=== PATIENT | female | born 1975 | race Caucasian/White ===

== ENCOUNTER 2017-03-20 10:52 | Day surgery (SDC) | payer BC ==
[~2017-03-20] VITALS: Ht 152.4 cm; Wt 68.4 kg
[2017-03-20] VITALS (9 sets, daily range): BP systolic 98–142; BP diastolic 55–77; PULSE 69–82; TEMP 98.2–99
[2017-03-20 07:58] LABS: MEAN CELL VOLUME 90 fl (80.0-100.0); MEAN CORPUSCULAR HGB CONC 32 g/dl (33.0-37.0); MEAN PLATELET VOLUME 10.1 fl (7.4-10.4); PLATELET COUNT 291 K/mm3 (130-400); RED BLOOD COUNT 4.06 M/mm3 (4.10-5.30); WHITE BLOOD COUNT 7.6 K/mm3 (4.8-10.8)
[2017-03-20 08:03] LABS: CALCIUM 8.9 mg/dL (8.4-10.2); CREATININE, serum 0.59 mg/dL (0.52-1.25); PROTHROMBIN TIME 11.2 SECONDS (9.7-12.8)
[2017-03-20 08:07] LABS: HEMATOCRIT 36.4 % (37.0-47.0); HEMOGLOBIN 11.5 g/dl (12.5-16.0); MEAN CORPUSCULAR HEMOGLOBIN 28 pg (27.0-31.0)
[~2017-03-20 10:52] MED LIST: ASPIRIN 81M81 MG/TA2 PO; CYMBALTA 30MG30 MG PO; DESYREL 50MG50 MG PO; IBUDONE5 PO; NITROSTAT0.4 MG/TAB SL; WELLBUTRIN SR100 M1 PO; ZOCOR 20MG20 MG PO
== END 2017-03-20 15:33 | disposition home or self-care (01) ==
LOC: EUO 10:52 → MEDICAL 15:33 → EDSTATUS 15:57
PROVIDERS: Internal Medicine Interventional Cardiology
DX: R07.9 Chest pain, unspecified (principal); R94.31 Abnormal electrocardiogram [ECG] [EKG]; E78.5 Hyperlipidemia, unspecified; Z79.82 Long term (current) use of aspirin; F17.210 Nicotine dependence, cigarettes, uncomplicated; M54.2 Cervicalgia; R11.2 Nausea with vomiting, unspecified; R00.2 Palpitations
CPT/HCPCS: J2250; J3010; Q9967

== ENCOUNTER → 2017-05-18 | Outpatient (CLI) | payer BC | LOC: COL.PUL 05-13 08:00 | DX: R06.02 Shortness of breath (principal) ==

== ENCOUNTER → 2018-07-09 | Outpatient (CLI) | payer BC | LOC: COL.RAD 10:12 | DX: K21.9 Gastro-esophageal reflux disease without esophagitis (principal) ==

== ENCOUNTER → 2018-07-15 | Outpatient (CLI) | payer BC | LOC: COL.RAD 06:41 | DX: K21.0 Gastro-esophageal reflux disease with esophagitis (principal) | CPT/HCPCS: A9541 ==

== ENCOUNTER 2018-07-23 05:18 | Day surgery (SDC) | payer BC ==
[~2018-07-23] VITALS: Ht 163.8 cm; Wt 66.1 kg
[2018-07-23] VITALS (11 sets, daily range): BP systolic 96–137; BP diastolic 44–71; PULSE 64–90; TEMP 97.9–99.5
[2018-07-23] MEDS ORDERED: OXYCONTIN 10MG10 MG PO (06:42)
--- NOTE | 2018-07-23 06:43 | NUR ---
TO RM 8 AT 0604- CALL LIGHT IN REACH MOTHER AT BEDSIDE
[2018-07-23] MEDS ORDERED: MOTRIN 600600 MG/TAB PO (09:58)
[2018-07-23] MEDS ORDERED: PERCOCET 325 MG1 TA2 PO (09:58)
[2018-07-23] MEDS ORDERED: ZOFRAN ODT4 MG PO (09:59)
--- NOTE | 2018-07-23 10:20 | NUR ---
returned to room per bed from PACU, awake and alert, IV infusing per dial-a-flow at 125ml/hr, O2 on at 2L/NC, abdominal robitic sites with massey set are CD&I, c/o some pain/discomfort to neck between shoulders and chest, explained this is most likely due to air introduced during surgery, full assessment completed, see interventions for further info, will provide water
--- NOTE | 2018-07-23 10:50 | NUR ---
continues to c/o pain to neck, medicated with scheduled motrin and percocet 5mg 1 tab, family at bedside
--- NOTE | 2018-07-23 11:00 | NUR ---
rests between checks, takes water and tolerates well
--- NOTE | 2018-07-23 11:30 | NUR ---
has tolerated water well, will order clear liquid tray
--- NOTE | 2018-07-23 12:15 | NUR ---
in bed crying c/o pain to chest anmd still neck pain, up and ambulated in the giraldo and then back to bed, medicated with second percocet 5mg tab, will try to have some clear liquids and then take a nap, mother at bedside
--- NOTE | 2018-07-23 13:10 | NUR ---
resting in bed now and is not tearful and states pain is better, denies needs
--- NOTE | 2018-07-23 14:10 | NUR ---
beginning to c/o some abdominal pain now, will rest
--- NOTE | 2018-07-23 16:00 | NUR ---
c/o abdominal pain and neck and pain in chest, medicated with percocet 5mg 2 tabs, asking to take a walk after pain pills take affect, informed that was fine and if needs assistance to notifiy staff, verbalizes understandiny
--- NOTE | 2018-07-23 17:30 | NUR ---
ambulating in giarldo independently with boyfriend at side, states relief from earlier pain meds
--- NOTE | 2018-07-23 19:11 | NUR ---
bedside shift report given to KIARA Schmidt
--- NOTE | 2018-07-23 19:45 | NUR ---
Pt. sitting up in bed watching TV. Pt. is A&OX3, assessment complete. INT to lt. forarm patent. Pt. has 6 abd. 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 Pt. reports pain at a 7 on pain scale, will give pain meds per orders. Pt. denies further needs, call light within reach.
[2018-07-24 01:07] VITALS: BP 113/72; PULSE 73; TEMP 99
[2018-07-24 03:56] VITALS: BP 120/75; PULSE 77; TEMP 99
--- NOTE | 2018-07-24 05:58 | NUR ---
Pt. slept off and on through the night. Pt. remains A&OX3, INT to lt. forearm remains patent. Pt. has had some pain through the night, see emar for meds given. Pt. denies further needs, call light within reach.
[2018-07-24 06:56] VITALS: BP 113/60; PULSE 81; TEMP 98.4
--- NOTE | 2018-07-24 07:29 | NUR ---
Pt is awake and A/Ox4, sitting up in bed. She requested PRN percocet for 7/10 abdominal and neck/shoulder pain. Lap sites x6 are free of complications, open to air. Pt tolerting clear liquids without diffculty. Planning on ambulating around hallways later this morning. Pt denies any other needs. Sign. other at bedside.
--- NOTE | 2018-07-24 09:06 | NUR ---
Pt reports pain to abdomen is now a 4/10 post percocet.
--- NOTE | 2018-07-24 09:42 | NUR ---
ELISHA met with the patient to discuss a discharge plan. The patient lives in [place] with her children and her mother. The patient does not use any DME and reports independence with ADLs. The patient's PCP is Dr. Christos Chatterjee and the patient receives her medications from [facility] in [place] or [facility] in [place]. The patient does not have advanced directives in the EMR and was not interested in obtaining a DPOA-HC form at this time. The patient reports she plans to return home upon discharge and will have assistance from her mother. There are no additional needs at this time.
--- NOTE | 2018-07-24 12:29 | NUR ---
Pt was discharged home from hospital. All discharge instructions and paperwork was reviewed with pt who expressed understanding and had no questions. New prescriptions given and reviewed. Saline lock removed, catheter tip intact. Pt was escorted out of facility by staff.
== END 2018-07-24 12:45 | disposition home or self-care (01) ==
LOC: SDCO 05:18 → SURG 10:20 → SDCO 07-24 12:45
DX: K22.70 Barrett's esophagus without dysplasia (principal); K21.9 Gastro-esophageal reflux disease without esophagitis; E78.00 Pure hypercholesterolemia, unspecified; K44.9 Diaphragmatic hernia without obstruction or gangrene; F41.9 Anxiety disorder, unspecified; G47.00 Insomnia, unspecified; F17.290 Nicotine dependence, other tobacco product, uncomplicated; M51.27 Other intervertebral disc displacement, lumbosacral region; F17.210 Nicotine dependence, cigarettes, uncomplicated; Z79.82 Long term (current) use of aspirin; Z79.899 Other long term (current) drug therapy
CPT/HCPCS: OP; A9284; J1170; J2250; J2405; J2550; J2704; J3010; J7120

== ENCOUNTER 2020-01-15 02:00 | Inpatient (IN) | payer BC ==
[~2020-01-15] VITALS: Ht 162.6 cm; Wt 72.0 kg
[~2020-01-15 02:00] MED LIST changes: +MOTRIN 600600 MG/TAB PO; +OXYCONTIN 10MG10 MG PO; +PERCOCET 325 MG1 TA2 PO; +ZOFRAN ODT4 MG PO
[2020-01-15 02:30] LABS: COLLECTION METHOD CLEAN CATCH
[2020-01-15 02:38] LABS: MUCOUS Present /lpf; PH 5 (5-8); SQUAMOUS EPITHELIAL 0-2 /hpf; URINE APPEARANCE Hazy; URINE BACTERIA Rare /hpf; URINE BILIRUBIN Negative (NEGATIVE); URINE BLOOD Negative (NEGATIVE); URINE COLOR Yellow; URINE GLUCOSE Negative (NEGATIVE); URINE KETONE Trace (NEGATIVE); URINE LEUKOCYTE ESTERASE Negative (NEGATIVE); URINE NITRATE Negative (NEGATIVE); URINE PROTEIN(semi-quant) Negative (NEGATIVE); URINE UROBILINOGEN Negative (NEGATIVE)
[2020-01-15 02:51] LABS: BASO # 0.1 (0.0-0.2); BASO % 0.5 % (0.0-2.0); EOS # 0.1 (0.0-0.7); EOS % 0.5 % (0-4.0); GRAN # 12.9 (1.4-6.5); GRAN % 76.6 % (42.2-75.2); HEMATOCRIT 38.9 % (37.0-47.0); HEMOGLOBIN 12.7 g/dl (12.5-16.0); LYMPH # 2.5 (1.2-3.4); LYMPH % 14.7 % (20.0-51.0); MEAN CELL VOLUME 84 fl (80.0-100.0); MEAN CORPUSCULAR HEMOGLOBIN 28 pg (27.0-31.0); MEAN CORPUSCULAR HGB CONC 33 g/dl (33.0-37.0); MEAN PLATELET VOLUME 9.8 fl (7.4-10.4); MONO # 1.2 (0.1-0.6); PLATELET COUNT 364 K/mm3 (130-400); RED BLOOD COUNT 4.62 M/mm3 (4.10-5.30); REDCELL DISTRIBUTION WIDTH-CV 17.4 % (11.5-14.5)
[2020-01-15 03:03] LABS: ALANINE AMINOTRANSFERASE 11 U/L (4-34); ALBUMIN 4.4 gm/dL (3.5-5.0); ALKALINE PHOSPHATASE 58 U/L (50-136); ANION GAP 7 mmol/L (7-16); AST,SGOT 22 U/L (15-37); BILIRUBIN,TOTAL 0.4 mg/dL (0.0-1.0); BLOOD UREA NITROGEN 8 mg/dL (7-17); CALCIUM 8.8 mg/dL (8.4-10.2); CARBON DIOXIDE 24 mmol/L (22-30); CHLORIDE 104 mmol/L (98-107); CREATININE, serum 0.65 (0.52-1.25); GLUCOSE 114 mg/dL (74-106); LIPASE 154 U/L (23-300); POTASSIUM 3.7 mmol/L (3.4-5.0); SODIUM 136 mmol/L (137-145); TOTAL PROTEIN 7.3 gm/dL (6.4-8.2)
[2020-01-15 03:17] LABS: C-REACTIVE PROTEIN < 0.5 mg/dL (0.0-0.9)
[2020-01-15] MEDS ORDERED: AMBIEN 5MG TABLE5 MG PO (04:04)
[2020-01-15] MEDS ORDERED: LEXAPRO20 MG PO (04:07)
[2020-01-15] MEDS ORDERED: WELLBUTRIN XL150 MG PO (04:07)
[2020-01-15] MEDS ORDERED: PRENATAL MVI (04:07)
[2020-01-15] MEDS ORDERED: ROXICODONE 55 MG/TAB PO (04:08)
[2020-01-15] MEDS ORDERED: MS CONTIN 330 MG/TAB PO (04:08)
--- NOTE | 2020-01-15 04:45 | NUR ---
Received report from ED KIARA hays
[2020-01-15 04:56] VITALS: BP 105/50; PULSE 74; TEMP 99.5
--- NOTE | 2020-01-15 04:56 | NUR ---
Pt arrived to medical unit room 353 via wc.
--- NOTE | 2020-01-15 06:31 | NUR ---
Pt settled in room. C/O lower abdominal pain, rate 7/10, prn morphine adminsitered. Pt understands NPO status. IVF started to RAC, intact. Call light within reach. MEd rec completed.
--- NOTE | 2020-01-15 07:33 | NUR ---
Report given to KIARA Montoya.
[2020-01-15 07:37] VITALS: BP 109/45; PULSE 74; TEMP 97.8
--- NOTE | 2020-01-15 08:30 | NUR ---
Assessment complete. Pt resting in bed, A&O x 4. Physical assessment unremarkable. Pt reports pain starting to increase in lower abd, requesting pain medication. Pt reports slight nausea occurred about 1 hour ago but did not last very long, denies diarrhea since admission. BP slightly lower than baseline and pt reports feeling a little dizzy. Pt encouraged to call for assistance when getting out of bed while having dizziness. Pt verbalizes understanding. IVF's infusing per orders through right AC site without s/s of complications. No further needs reported. Call light in reach.
[2020-01-15] MEDS ORDERED: HEATHER0.35 MG PO (10:53)
[2020-01-15 12:40] VITALS: BP 105/66; PULSE 70; TEMP 98.1
--- NOTE | 2020-01-15 14:10 | NUR ---
SW met with patient to complete intake. Patient states that she lives in [place], [place]. Patient states that she lives with her daughter. Current primary contact she provided would be her boyfriend Raymundo [phone]. Patient states she does not utilize any DME, and provides she is independent with with ADL's. Patient states that her PCP is Dr. Chatterjee, [facility], and states she can afford her medications. Patient provides that she does not have a DPOA-HC at this time. SW present document to review and patient appointed mother as DPOA-HC and alternate DPOA-HC her boyfriend Raymundo. Patient states that she plans to go back to her home upon DC with her mother coming from [facility] to assist with her care. SW will continue to follow.
--- NOTE | 2020-01-15 15:30 | NUR ---
Pt reports sudden sharp pains with slight nausea, requesting medications. PRN pain and nausea medication administered per orders. Pt reports this interrmittent pain has continued throughout the day, feeling better for a couple of hours then suddenly the pain comes on.
[2020-01-15 15:45] VITALS: BP 113/71; PULSE 69; TEMP 97.8
[2020-01-15 19:18] VITALS: BP 123/61; PULSE 55; TEMP 98.7
--- NOTE | 2020-01-15 19:20 | NUR ---
Received report from Lindsay. Seen patient awake, lying in bed. She is alert and oriented. With IV on right AC infusing NS at 125ml/hr. Call light within reach.
[2020-01-15 23:50] VITALS: BP 109/61; PULSE 62; TEMP 98.1
[2020-01-16 03:37] VITALS: BP 112/56; PULSE 66; TEMP 98.1
--- NOTE | 2020-01-16 05:51 | NUR ---
Patient had 9/10 pain score this morning. Morphine IV given. She doesn't have nausea or vomiting. She said she was able to sleep until her pain awaken her up. Call light within reach.
[2020-01-16 06:54] LABS: BASO # 0.1 (0.0-0.2); BASO % 0.9 % (0.0-2.0); EOS # 0.1 (0.0-0.7); EOS % 1.6 % (0-4.0); GRAN # 4.2 (1.4-6.5); GRAN % 55.3 % (42.2-75.2); HEMOGLOBIN 10.9 g/dl (12.5-16.0); LYMPH # 2.3 (1.2-3.4); LYMPH % 31.1 % (20.0-51.0); MEAN CELL VOLUME 87 fl (80.0-100.0); MEAN CORPUSCULAR HEMOGLOBIN 28 pg (27.0-31.0); MEAN CORPUSCULAR HGB CONC 32 g/dl (33.0-37.0); MEAN PLATELET VOLUME 9.8 fl (7.4-10.4); MONO # 0.8 (0.1-0.6); MONO % 10.6 % (1.7-9.3); PLATELET COUNT 290 K/mm3 (130-400); RED BLOOD COUNT 3.89 M/mm3 (4.10-5.30); REDCELL DISTRIBUTION WIDTH-CV 17.7 % (11.5-14.5)
[2020-01-16 07:14] LABS: CALCIUM 7.2 mg/dL (8.4-10.2); CREATININE, serum 0.58 (0.52-1.25); MAGNESIUM 2.1 mg/dL (1.6-2.3); POTASSIUM 3.7 mmol/L (3.4-5.0)
[2020-01-16 09:09] VITALS: BP 110/67; PULSE 65; TEMP 98.6
[2020-01-16 11:30] VITALS: BP 120/67; PULSE 70; TEMP 98.5
--- NOTE | 2020-01-16 12:58 | NUR ---
Initial visit; Patient thanked Uniform Force Captain for looking in on her and offering God's blessings.
[2020-01-16 16:12] VITALS: BP 115/63; PULSE 73; TEMP 98.1
[2020-01-16 19:27] VITALS: BP 118/90; PULSE 65; TEMP 98.5
--- NOTE | 2020-01-16 19:34 | NUR ---
Patient alert and oriented. complain of abdominal pain. Diet was advance from NPO to clear liquids. Zofran given for nausea, Morphine for pain. Patient tolerate diet. No vomit during this shift. Patient ambulate fine around the room.
--- NOTE | 2020-01-16 19:35 | NUR ---
Received report from [facility]. Seen patient awake, lying in bed watching TV. Denies nausea or vomiting at this time. Reports mild abdominal pain. Call light within reach.
--- NOTE | 2020-01-16 20:38 | NUR ---
Patient complains of abdominal pain, pain socre of 11/13. Morphine given. She states as well that she felt nauseous after drinking some fluids. Zofran given. Informed her that I will write in the white board the last time she had Morphine and Zofran so she knows when she can have the next dose as needed.
[2020-01-16 23:14] VITALS: BP 114/54; PULSE 68; TEMP 98.2
[2020-01-17 03:47] VITALS: BP 126/62; PULSE 70; TEMP 98.1
--- NOTE | 2020-01-17 06:37 | NUR ---
Patient still with complains of abdominal pain. No nausea/vomiting. She's tolerating clear liquids. Call light within reach.
[2020-01-17 07:02] LABS: BASO # 0.1 (0.0-0.2); EOS # 0.2 (0.0-0.7); EOS % 2.4 % (0-4.0); GRAN # 4.9 (1.4-6.5); GRAN % 60.9 % (42.2-75.2); HEMOGLOBIN 10.6 g/dl (12.5-16.0); LYMPH % 25.3 % (20.0-51.0); MEAN CELL VOLUME 85 fl (80.0-100.0); MEAN CORPUSCULAR HEMOGLOBIN 28 pg (27.0-31.0); MEAN CORPUSCULAR HGB CONC 33 g/dl (33.0-37.0); MEAN PLATELET VOLUME 9.9 fl (7.4-10.4); MONO # 0.8 (0.1-0.6); MONO % 9.9 % (1.7-9.3); PLATELET COUNT 285 K/mm3 (130-400); RED BLOOD COUNT 3.81 M/mm3 (4.10-5.30); REDCELL DISTRIBUTION WIDTH-CV 17.1 % (11.5-14.5)
[2020-01-17 07:06] LABS: HEMATOCRIT 32.4 % (37.0-47.0)
[2020-01-17 07:16] LABS: ANION GAP 5 mmol/L (7-16); CALCIUM 7.2 mg/dL (8.4-10.2); CARBON DIOXIDE 20 mmol/L (22-30); CHLORIDE 111 mmol/L (98-107); GLUCOSE 88 mg/dL (74-106); POTASSIUM 3.4 mmol/L (3.4-5.0); SODIUM 137 mmol/L (137-145)
[2020-01-17 07:19] LABS: BLOOD UREA NITROGEN < 2 mg/dL (7-17)
[2020-01-17 07:36] VITALS: BP 113/68; PULSE 63; TEMP 98.5
[2020-01-17 12:00] VITALS: BP 113/74; PULSE 64; TEMP 98.6
--- NOTE | 2020-01-17 15:14 | NUR ---
Telephone Clerk [employer] met with the patiet to revisit the discharge plan. The patient plans to return home once medically stable to do so. The patient's mother, Mrs. Sesay will fly in from [facility] this day for support post discharge.
[2020-01-17 16:21] VITALS: BP 129/59; PULSE 68; TEMP 99.1
[2020-01-17 19:39] VITALS: BP 114/67; PULSE 69; TEMP 97.9
--- NOTE | 2020-01-17 20:05 | NUR ---
patient alert and oriented. complain of abdominal pain and nausea. Had no episode of vomit. nausea managed with zofran. Pain managed with morphine and [place]. Fluid discontinued. Dr Paniagua ordered for Xray, no acute abnormalities. Diet advanced from clear liquid to [place]. bowel regimen stated, Last BM 01/13. GI panel ordered, Pending as patient have no bowel output yet. patient ambulate around the room independently. Patient resting in bed.
--- NOTE | 2020-01-17 23:08 | NUR ---
Received report from KIARA Carcamo. PT resting in bed. PRN pain meds administered as requested by pt for abdomen pain, rate 7/10. Denies nausea at this time. NO other needs or concerns at this time. PT understands stool sample in needed. INT to RAC intact, flushed, dressing CDI. Call light within reach.
[2020-01-18] VITALS (7 sets, daily range): BP systolic 118–134; BP diastolic 58–79; PULSE 57–89; TEMP 98–99.1
--- NOTE | 2020-01-18 00:25 | NUR ---
Pt requested pain and nausea meds at this time. States having abdomen pain, rate 9/10, prn morphine and nausea given. Drink provided as requested. Call light within reach.
--- NOTE | 2020-01-18 01:08 | NUR ---
Received report from ED RNMARCO ANTONIO.
--- NOTE | 2020-01-18 04:12 | NUR ---
Pt awake requesting pain med. PRN morphine administered for abdominal pain rate 11/13. Needs met. Call light within reach.
[2020-01-18 06:46] LABS: BASO # 0.1 (0.0-0.2); BASO % 0.9 % (0.0-2.0); EOS # 0.2 (0.0-0.7); EOS % 2.5 % (0-4.0); GRAN % 53.2 % (42.2-75.2); HEMOGLOBIN 11.1 g/dl (12.5-16.0); LYMPH # 2.4 (1.2-3.4); LYMPH % 31.9 % (20.0-51.0); MEAN CELL VOLUME 85 fl (80.0-100.0); MEAN CORPUSCULAR HEMOGLOBIN 28 pg (27.0-31.0); MEAN CORPUSCULAR HGB CONC 33 g/dl (33.0-37.0); MEAN PLATELET VOLUME 10.6 fl (7.4-10.4); MONO # 0.8 (0.1-0.6); MONO % 11.1 % (1.7-9.3); PLATELET COUNT 312 K/mm3 (130-400); RED BLOOD COUNT 4.02 M/mm3 (4.10-5.30)
[2020-01-18 06:53] LABS: HEMATOCRIT 34.2 % (37.0-47.0)
--- NOTE | 2020-01-18 07:10 | NUR ---
Report given to KIARA Jones.
--- NOTE | 2020-01-18 07:12 | NUR ---
Report given to KIARA Ken.
--- NOTE | 2020-01-18 07:14 | NUR ---
appears to be sleeping but awakens easily, bedside shift report received from KIARA Villegas
--- NOTE | 2020-01-18 07:15 | NUR ---
appears to be dozing and awakens easily, bedside shift report recieved from KIARA Velazquez
--- NOTE | 2020-01-18 08:40 | NUR ---
resting in bed and states she is beginning to hae abdominal pain again, had a couple of bites of breakfast and then stopped, states pain is all over her abdomen, bowel sounds are hypoactive, full assessment completed, see interventions for further info
--- NOTE | 2020-01-18 09:37 | NUR ---
Dr Jones and care team in to see patient
--- NOTE | 2020-01-18 10:30 | NUR ---
Dr Jones and care team in to see patient a this time, medicated with roxicodone 5mg po,
--- NOTE | 2020-01-18 11:09 | NUR ---
Dr Paniagua was in to see patient, she continues to c/o pain but it is better, will get up and ambulate in the giraldo soon
[2020-01-18 11:39] LABS: ALBUMIN 3.1 gm/dL (3.5-5.0); BILIRUBIN UNCONJUGATED 0.2 mg/dL (0.0-1.1); BILIRUBIN,DIRECT 0.1 mg/dL (0.0-0.4); BILIRUBIN,TOTAL 0.3 mg/dL (0.0-1.0); TOTAL PROTEIN 5.4 gm/dL (6.4-8.2)
--- NOTE | 2020-01-18 11:52 | NUR ---
resting in bed, states pain is comtinuing to get better
--- NOTE | 2020-01-18 12:52 | NUR ---
states pain is starting to return, encouraged and is up and ambulating in giraldo
--- NOTE | 2020-01-18 13:20 | NUR ---
resting in bed with eyes closed,
--- NOTE | 2020-01-18 13:42 | NUR ---
still having some pain, grimaces but is not tearful, will take a shower to try and help with pain
--- NOTE | 2020-01-18 15:05 | NUR ---
continued to c/o pain that has not decreased, medicated with morphine 2mg slow IV
--- NOTE | 2020-01-18 15:40 | NUR ---
had something to eat and tolerated well without causing increase in pain, s tates pain is better since having morphine
--- NOTE | 2020-01-18 17:22 | NUR ---
resting in bed with eyes closed, denies needs
--- NOTE | 2020-01-18 18:53 | NUR ---
bedside shift report given to KIARA Magdaleno
--- NOTE | 2020-01-18 19:48 | NUR ---
Pt resting in bed. States she feels frustrated with current hospitalization. Has not had a BM today. BS active in all quadrants. Scheduled colace administered. PT ate 100% of dinner. Pt showered and ambulated today. PRn zofran and pain meds administered as requested by pt. Having rt abdominal pain. INT to RAC intact, flushed w/o complications, dressing CDI. Needs met at this time. Call light within reach.
[2020-01-19 03:40] VITALS: BP 122/72; PULSE 56; TEMP 98.7
--- NOTE | 2020-01-19 06:23 | NUR ---
PRN pain med and nausea med administered as requested by pt. No other complaints throughout the night. States passing ramo. No BM on this shift.
--- NOTE | 2020-01-19 06:48 | NUR ---
Report given to KIARA Wolfe.
[2020-01-19 07:10] LABS: BASO # 0.1 (0.0-0.2); BASO % 0.6 % (0.0-2.0); EOS # 0.1 (0.0-0.7); EOS % 1.7 % (0-4.0); GRAN # 5.1 (1.4-6.5); GRAN % 62.4 % (42.2-75.2); HEMOGLOBIN 11.7 g/dl (12.5-16.0); LYMPH # 2.1 (1.2-3.4); LYMPH % 25.2 % (20.0-51.0); MEAN CELL VOLUME 84 fl (80.0-100.0); MEAN CORPUSCULAR HEMOGLOBIN 28 pg (27.0-31.0); MEAN CORPUSCULAR HGB CONC 33 g/dl (33.0-37.0); MEAN PLATELET VOLUME 9.8 fl (7.4-10.4); MONO # 0.8 (0.1-0.6); MONO % 9.5 % (1.7-9.3); PLATELET COUNT 315 K/mm3 (130-400); RED BLOOD COUNT 4.23 M/mm3 (4.10-5.30); REDCELL DISTRIBUTION WIDTH-CV 17.1 % (11.5-14.5)
[2020-01-19 07:14] LABS: HEMATOCRIT 35.6 % (37.0-47.0)
[2020-01-19 07:34] LABS: ALBUMIN 3.4 gm/dL (3.5-5.0); BILIRUBIN,TOTAL 0.3 mg/dL (0.0-1.0); CALCIUM 8.1 mg/dL (8.4-10.2); CREATININE, serum 0.59 (0.52-1.25); POTASSIUM 3.5 mmol/L (3.4-5.0)
[2020-01-19 07:45] VITALS: BP 123/80; PULSE 65; TEMP 98.2
--- NOTE | 2020-01-19 08:18 | NUR ---
Assessment completed, alert/oriented, vital signs stable, patient reports increased RUQ abd pain this morning/ pain meds givn per request, abd is soft and BS+ throughout, she denies any N/V and is tolerting some PO intake, I have encouraged her to get up and ambulate and she verbalized undertanding, she is hoping to be discharged today, denies other needs at this time
[2020-01-19] MEDS ORDERED: MIRALAX PA17 GM/Dose PO (09:47)
[2020-01-19] MEDS ORDERED: PROMETHAZINE12.5 M5 PO (09:49)
[2020-01-19] MEDS ORDERED: PROTONIX20 MG PO (09:51)
--- NOTE | 2020-01-19 12:27 | NUR ---
Discussed discharge orders with the patient, instructed to follow up with PCP and Surgery as scheduled for her, IV site removed, instructed to take meds as ordered and sctips sent to [facility] pharmacy for her, leaving with her mother, I escorted her out the door
--- NOTE | 2020-01-19 13:50 | NUR ---
Primary nurse was assisted with [id number] patient care by [employer] student Abril Zaragoza and [employer] instructor Steph Stanley RN-.
== END 2020-01-19 12:29 | disposition home or self-care (01) | DRG 392 ==
LOC: COL.ER 02:00 → MEDICAL 04:00
PROVIDERS: Emergency Medicine; Internal Medicine; Physician Assistant
DX: K59.00 Constipation, unspecified (principal); K22.70 Barrett's esophagus without dysplasia; E78.5 Hyperlipidemia, unspecified; M54.9 Dorsalgia, unspecified; G89.29 Other chronic pain; F32.9 Major depressive disorder, single episode, unspecified; F41.9 Anxiety disorder, unspecified; G47.00 Insomnia, unspecified; F17.210 Nicotine dependence, cigarettes, uncomplicated
CPT/HCPCS: 99222-AI; 99232-AI; 99239; J1650; J1885; J2270; J2405; J7030; Q9967

== ENCOUNTER 2020-05-22 07:37 | Day surgery (SDC) | payer BC ==
[~2020-05-22] VITALS: Ht 162.6 cm; Wt 62.6 kg
[~2020-05-22 07:37] MED LIST changes: +AMBIEN 5MG TABLE5 MG PO; +HEATHER0.35 MG PO; +LEXAPRO20 MG PO; +MIRALAX PA17 GM/Dose PO; +MS CONTIN 330 MG/TAB PO; +PRENATAL MVI; +PROMETHAZINE12.5 M5 PO; +PROTONIX20 MG PO; +ROXICODONE 55 MG/TAB PO; +WELLBUTRIN XL150 MG PO
[2020-05-22] MEDS ORDERED: WELLBUTRIN XL300 M1 PO (07:55)
[2020-05-22] MEDS ORDERED: DESYREL 100MG100 MG PO (07:58)
[2020-05-22 07:59] VITALS: BP 99/68; PULSE 75; TEMP 98.2
[2020-05-22] MEDS ORDERED: PERCOCET 325 MG1 TA2 PO (10:17)
[2020-05-22 10:55] VITALS: BP 115/73; PULSE 77; TEMP 97.6
--- NOTE | 2020-05-22 10:55 | NUR ---
The patient arrived back to [place] [facility] from the recovery room at this time. The patient appears alert and oriented and reports minimal pain in her abdomen at this time. Post operative vital signs were started at this time. The patient agrees to try some stacey crackers and ice water at this time. The patient's significant other is at her bedside at this time. The patient has three lap sites to her abdomen that are covered with surgical glue and without redness or edema. Call light is within reach. Will continue to monitor the patient.
[2020-05-22 11:10] VITALS: BP 111/62; PULSE 77
--- NOTE | 2020-05-22 11:10 | NUR ---
The patient appears to be tolerating the food and drink well. Vital signs appear stable. The patient's significant other remains at her bedside. Will continue to monitor the patient.
[2020-05-22 11:20] VITALS: BP 112/65; PULSE 78
--- NOTE | 2020-05-22 11:20 | NUR ---
The patient was given a PRN dose of Percocet 1 tab at this time. The patient reports having some phlem and drainage at the back of her throat and has been clearing her throat often and coughing when needed.
[2020-05-22 11:35] VITALS: BP 104/56; PULSE 73
--- NOTE | 2020-05-22 11:35 | NUR ---
The patient ambulated to the bathroom with the stand by assistance of one nurse and appeared to tolerate the activity well. The nurse instructed the patient that if she is able to void that she can get dressed and press her call light when she is ready to review her discharge paperwork.
[2020-05-22 11:44] VITALS: BP 115/73; PULSE 70
--- NOTE | 2020-05-22 11:45 | NUR ---
The patient voided without difficulty and voices a desire to be discharged home. Discharge instructions were reviewed with the patient and her significant other at this time. They both verbalized understanding and questions were answered. The patient's IV to her right hand was removed and a pressure dressing was applied to the site. The patient is dressed and ready to be escorted out.
--- NOTE | 2020-05-22 11:52 | NUR ---
The patient was escorted out via wheelchair to a private vehicle by KIARA Montiel. The patient's belongings and discharge paperwork were sent with her. The patient's significant other is present to drive her home.
== END 2020-05-22 11:52 | disposition home or self-care (01) ==
LOC: SDCO 07:37
DX: K56.609 Unspecified intestinal obstruction, unspecified as to partial versus complete obstruction (principal); F41.9 Anxiety disorder, unspecified; K21.9 Gastro-esophageal reflux disease without esophagitis; E78.00 Pure hypercholesterolemia, unspecified; F17.210 Nicotine dependence, cigarettes, uncomplicated; K22.70 Barrett's esophagus without dysplasia; K92.2 Gastrointestinal hemorrhage, unspecified; Z91.011 Allergy to milk products; G89.29 Other chronic pain; M19.90 Unspecified osteoarthritis, unspecified site; F32.9 Major depressive disorder, single episode, unspecified; D64.9 Anemia, unspecified
CPT/HCPCS: J0690; J1100; J1170; J2270; J2405; J2550; J2704; J3010; J7120

== ENCOUNTER 2024-01-01 13:38 | Emergency (ER) | payer MEDICAID ==
[~2024-01-01] VITALS: Ht 162.6 cm; Wt 65.0 kg
[~2024-01-01 13:38] MED LIST changes: +ATARAX 25MG25 MG/TAB PO; +DAZIDOX10 MG PO; +DESYREL 100MG100 MG PO; +IMITREX50 MG PO; +LEXAPRO 5MG5 MG PO; +PROZAC 20MG20 MG PO; +SEROQUEL50 MG PO; +WELLBUTRIN XL300 M1 PO
[2024-01-01 13:44] VITALS: TEMP 97.9
[2024-01-01 14:33] LABS: BASO # 0.1 K/mm3 (0.0-0.2); EOS # 0.4 K/mm3 (0.0-0.7); EOS % 4.3 % (0.0-4.0); GRAN % 55.7 % (42.2-75.2); HEMATOCRIT 31.6 % (37.0-47.0); HEMOGLOBIN 10.1 g/dl (12.5-16.0); LYMPH # 2.6 K/mm3 (1.2-3.4); LYMPH % 28.3 % (20.0-51.0); MEAN CELL VOLUME 90 fl (80.0-100.0); MEAN CORPUSCULAR HEMOGLOBIN 29 pg (27-31); MEAN CORPUSCULAR HGB CONC 32 g/dl (33.0-37.0); MEAN PLATELET VOLUME 9.5 fl (7.4-10.4); MONO # 0.9 K/mm3 (0.1-0.6); MONO % 9.6 % (1.7-9.3); PLATELET COUNT 347 K/mm3 (130-400); RED BLOOD COUNT 3.51 M/mm3 (4.10-5.30); REDCELL DISTRIBUTION WIDTH-CV 15.4 % (11.5-14.5)
[2024-01-01 14:59] LABS: ALBUMIN 3.5 g/dL (3.5-5.0); BILIRUBIN,TOTAL 0.2 mg/dL (0.2-1.2); CREATININE, serum 0.67 mg/dL (0.57-1.11); POTASSIUM 4.2 mEq/L (3.5-4.5); TOTAL PROTEIN 6.4 g/dl (6.2-8.1)
[2024-01-01 15:12] VITALS: BP 105/70; PULSE 80
== END 2024-01-01 15:18 | disposition home or self-care (01) ==
LOC: COL.ER 13:38
PROVIDERS: Family Medicine
DX: D64.9 Anemia, unspecified (principal); R60.0 Localized edema; F17.200 Nicotine dependence, unspecified, uncomplicated